=== PATIENT | female | born 1930 | race Caucasian/White ===

== ENCOUNTER 2018-07-05 10:58 | Emergency (ER) | payer OTHER ==
[~2018-07-05] VITALS: Ht 144.8 cm; Wt 91.2 kg
[2018-07-05] MEDS ORDERED: NORVASC5 MG PO ×2 (11:11→13:49)
[2018-07-05] MEDS ORDERED: LOPRESSOR100 M1 PO (11:11)
[2018-07-05] MEDS ORDERED: ASPIR 8181 MG PO (11:11)
[2018-07-05 11:33] LABS: ABSOLUTE BASOPHILS 0.1 thou/uL (0.0-0.2); ABSOLUTE EOSINOPHILS 0.1 thou/uL (0.0-0.7); ABSOLUTE LYMPHOCYTES 1.9 thou/uL (0.8-5.3); ABSOLUTE MONOCYTES 0.7 thou/uL (0.0-1.2); ABSOLUTE NEUTROPHILS 6.9 thou/uL (1.6-8.1); BASOPHILS 0.9 %; EOSINOPHILS 0.6 %; HEMATOCRIT 39.5 % (37.0-47.0); HEMOGLOBIN 13.1 gm/dL (12.0-15.0); LYMPHOCYTES 19.8 %; MCHC 33.1 g/dL (28.0-37.0); MCV 84.7 fL (80.0-100.0); MPV 11.2 fl. (7.2-11.1); NUCLEATED RBCS 0 /100WBC; PLATELET COUNT* 175 thou/uL (150-400); POLYS 71.7 %; RBC 4.66 mil/uL (4.20-5.00); RDW-CV 14.4 % (10.5-14.5); WBC 9.7 thou/uL (4.0-11.0)
[2018-07-05 11:39] LABS: ANION GAP 10 mmol/L (7-16); BUN 24 mg/dL (7-18); CALCIUM 8.7 mg/dL (8.5-10.1); CHLORIDE 101 mmol/L (98-107); CO2 27 mmol/L (21-32); CREATININE 1.9 mg/dL (0.6-1.3); GLUCOSE 117 mg/dL (70-99); POTASSIUM 3.9 mmol/L (3.5-5.1); SODIUM 138 mmol/L (136-145)
[2018-07-05 11:47] LABS: TROPONIN-I LEVEL <0.06 ng/mL (<0.06)
[2018-07-05] MEDS ORDERED: METOPROLOL SUC100 MG PO (13:49)
[2018-07-05 13:57] VITALS: BP 196/77
--- NOTE | 2018-07-07 10:21 | EKG ---
[place] [address] ELECTROCARDIOGRAM REPORT Name: CANDI PATEL Room: [facility]#: [id number] Admission: 07/05/18 Attend Phys: Discharge: 07/05/18 Date of : [birth year] Report #: [id number] THIS REPORT FOR: //name// [facility] ED Test Date: 2018-07-05 Test Time: 11:15:09 Pat Name: CANDI PATEL Department: Room: Gender: F Creeler: Moy SKY : 1930 Requested By: Laci Castro Order Number: [id number] MD: Jovon Grimm Measurements Intervals [place] Rate: 91 P: 54 [place]: 153 QRS: -26 QRSD: 133 T: 21 QT: 389 QTc: 479 Interpretive Statements Sinus rhythm LAE, consider biatrial enlargement Right bundle branch block No previous ECG available for comparison Electronically Signed On 07-07-2018 10:21:05 CDT by Jovon Grimm [email or web address] <ELECTRONICALLY SIGNED> By: oJvon Grimm MD, [facility] 07/07/18 1021 1115 1115 Jovon Grimm MD, FAC /EPI
== END 2018-07-05 13:59 | disposition home or self-care (01) ==
LOC: M.ERS 10:58
PROVIDERS: Emergency Medicine Emergency Medical Services
DX: I10 Essential (primary) hypertension (principal); Z88.0 Allergy status to penicillin; Z88.2 Allergy status to sulfonamides; Z90.710 Acquired absence of both cervix and uterus